=== PATIENT | female | born 1975 | race Caucasian/White ===

== ENCOUNTER 2016-08-20 13:03 | Emergency (ER) | payer BC ==
--- NOTE | ~2016-08-20 | CT17 ---
[facility] A Service of [facility] RADIOLOGY TEXT RESULTS PATIENT: IRIS SAUL LOCATION: SED : [birth year] UNIT #: [id number] AGE: [address]: Brian Miramontes MD SEX: F ORDER DR: [id number] [place] [address] [id number] E MR#: [id number] Acc #: [id number] NAME: IRIS SAUL. : 1975 SEX: F STUDY DATE/TIME: 08/20/2016 15:23 UNIT: SED ROOM: STUDY DESCRIPTION: CT Angio Head Attending Physician: Brian Miramontes M.D. Primary Care Physician: Vito Harris M.D. MEDICAL IMAGING REPORT This report is preliminary unless electronic signature is present. EXAM Head neck CTA, 08/20/2016 INDICATIONS Right side facial numbness for 4 hours with right shoulder pain all day. No trauma. TECHNIQUE Axial images were obtained through the head and neck following IV contrast administration. 3-D reformats were obtained. No comparison CTA. This CT exam was performed with one or more of the following radiation dose reduction techniques: automatic exposure control, adjustment of mA and/or kV according to patient size, and iterative reconstruction. FINDINGS Within the neck, there is no carotid or vertebral stenosis by NASCET criteria. No dissection is seen. There is no plaque disease. Vertebral arteries are codominant. The branching pattern from the arch is normal. Intracranially, there is no flow-limiting stenosis by NASCET criteria. No vessel cutoff is seen. There is no intracranial aneurysm. There is no vascular malformation. Major dural venous sinuses are patent. IMPRESSION Negative head and neck CT angiogram. There is 0% stenosis in the carotid or vertebral vasculature within the neck, and there is no dissection. Within the brain, there is 0% stenosis by NASCET criteria. No aneurysm or vascular malformation is seen. No vessel cutoff. [facility] A Service of [facility] RADIOLOGY TEXT RESULTS PATIENT: IRIS SAUL LOCATION: SED : [birth year] UNIT #: [id number] AGE: [address]: Brian Miramontes MD SEX: F ORDER DR: Dictated by... Buck Castrejon Jr., M.D. THIS IS AN ELECTRONICALLY VERIFIED REPORT Buck Castrejon Jr., M.D. at 08/21/2016 4:56 PM CHUCHO/marielos TD: 08/21/2016 00:26 JOB #: [id number] MEDICAL IMAGING REPORT Page 1 of 1
--- NOTE | ~2016-08-20 | CT71 ---
[facility] A Service [facility] RADIOLOGY TEXT RESULTS PATIENT: IRIS SAUL LOCATION: SED : [birth year] UNIT #: [id number] AGE: [address]: Brian Miramontes MD SEX: F ORDER DR: [id number] [place] [address] [id number] E MR#: [id number] Acc #: [id number] NAME: IRIS SAUL. : 1975 SEX: F STUDY DATE/TIME: 08/20/2016 15:19 UNIT: SED ROOM: STUDY DESCRIPTION: CT Head Wo Contrast Attending Physician: Brian Miramontes M.D. Primary Care Physician: Vito Harris M.D. MEDICAL IMAGING REPORT This report is preliminary unless electronic signature is present. EXAM Head CT, 08/20 INDICATIONS Right side facial numbness for about 4 hours. New onset right shoulder pain for 1 day. No trauma. FINDINGS Axial images were obtained from the base to the vertex without contrast. No comparison. This CT exam was performed with one or more of the following radiation dose reduction techniques: Automatic exposure control, adjustment of mA and/or kV according to patient size, and iterative reconstruction. Ventricular size and configuration are within normal limits. No acute infarct or hemorrhages seen. There are no masses. There are no skull fractures. IMPRESSION Negative noncontrast head CT. Dictated by... Buck Castrejon Jr., M.D. THIS IS AN ELECTRONICALLY VERIFIED REPORT Buck Castrejon Jr., M.D. at 08/20/2016 10:35 PM KAYKAYK/mylene TD: 08/20/2016 20:46 JOB #: [id number] [facility] A Service [facility] RADIOLOGY TEXT RESULTS PATIENT: IRIS SAUL LOCATION: SED : [birth year] UNIT #: [id number] AGE: [address]: Brian Miramontes MD SEX: F ORDER DR: MEDICAL IMAGING REPORT Page 1 of 1
--- NOTE | ~2016-08-20 | US140 ---
[facility] A Service of [facility] RADIOLOGY TEXT RESULTS PATIENT: IRIS SAUL LOCATION: SED : [birth year] UNIT #: [id number] AGE: [address]: Brian Miramontes MD SEX: F ORDER DR: [id number] [address] [address] [id number] E MR#: [id number] Acc #: [id number] NAME: IRIS SAUL : 1975 SEX: F STUDY DATE/TIME: 08/20/2016 15:23 UNIT: SED ROOM: STUDY DESCRIPTION: UE Veins Unilat or Ltd Stdy Attending Physician: Brian Miramontes M.D. Ordering Physician: Brian Miramontes M.D. Primary Care Physician: Vito Harris M.D. MEDICAL IMAGING REPORT This report is preliminary unless electronic signature is present. EXAM Ultrasound upper extremity veins unilateral HISTORY Right arm and shoulder pain for 1 week. Knot on the right forearm per patient. No previous history of DVT. Not taking blood thinners. FINDINGS Real-time ultrasonography right upper extremity venous structures performed. Lezama-scale, color Doppler, Doppler pulse wave interrogation utilized. The right internal jugular vein, subclavian vein, axillary vein, brachial veins are patent with normal compressibility where anatomically possible and normal Doppler color interrogation demonstrating [id number]-xd-[id number] flow. The right basilic and cephalic veins are patent with normal compressibility. The right radial and ulnar veins are patent with normal compressibility. IMPRESSION There is no evidence of right upper extremity deep or superficial venous thrombosis at time of this examination. Dictated by... Gareth Archuleta M.D. THIS IS AN ELECTRONICALLY VERIFIED REPORT Gareth Archuleta M.D. at 08/21/2016 5:16 PM CAITLYN/marielos TD: 08/20/2016 22:01 JOB #: [id number] [facility] A Service of [facility] RADIOLOGY TEXT RESULTS PATIENT: IRIS SAUL LOCATION: SED : [birth year] UNIT #: [id number] AGE: [address]: Brian Miramontes MD SEX: F ORDER DR: MEDICAL IMAGING REPORT Page 1 of 1
--- NOTE | ~2016-08-20 | CR63 ---
[facility] A Service of [facility] & [facility] RADIOLOGY TEXT RESULTS PATIENT: IRIS SAUL LOCATION: SED : [birth year] UNIT #: [id number] AGE: [address]: Brian Miramontes MD SEX: F ORDER DR: [id number] [place] [id number] E MR#: [id number] Acc #: [id number] NAME: IRIS SAUL. : 1975 SEX: F STUDY DATE/TIME: 08/20/2016 15:10 UNIT: SED ROOM: STUDY DESCRIPTION: CR Chest 2 View Attending Physician: Brian Miramontes M.D. Ordering Physician: Brian Miramontes M.D. Primary Care Physician: iVto Harris M.D. MEDICAL IMAGING REPORT This report is preliminary unless electronic signature is present. EXAM PA and lateral chest INDICATIONS Cough, right-sided facial numbness, right shoulder pain for 1 day. Comparison is made with 09/10/09. FINDINGS Lungs are well expanded. No acute infiltrate. Heart size normal. Visualized osseous structures are unremarkable. IMPRESSION No active disease. Dictated by... Sha Kessler M.D. THIS IS AN ELECTRONICALLY VERIFIED REPORT Sha Kessler M.D. at 08/21/2016 7:38 AM ARS/mylene TD: 08/20/2016 21:19 JOB #: [id number] MEDICAL IMAGING REPORT Page 1 of 1
--- NOTE | ~2016-08-20 | EKG ---
PATIENT: IRIS SAUL UNIT #: [id number] Ventricular Rate: 79 BPM Atrial Rate: 79 BPM P-R Interval: 160 ms QRS Duration: 78 ms Q-T Interval: 410 ms QTC Calculation(Bezet): 470 ms P Mobile: 38 degrees Calculated R Mobile: 42 degrees Calculated T Mobile: 39 degrees Diagnosis Line: Normal sinus rhythm Diagnosis Line: Normal ECG Diagnosis Line: Diagnosis Line: Confirmed by CORNELIUS ZEPEDA MD ([id number]) on Diagnosis Line: 08/29/2016 8:27:38 AM INTERPRETING MD: DUANE FRANCIS
--- NOTE | ~2016-08-20 | CT23 ---
[facility] A Service of [facility] RADIOLOGY TEXT RESULTS PATIENT: IIRS SAUL LOCATION: SED : [birth year] UNIT #: [id number] AGE: [address]: Brian Miramontes MD SEX: F ORDER DR: [id number] [place] [address] [id number] E MR#: [id number] Acc #: [id number] NAME: IRIS SAUL. : 1975 SEX: F STUDY DATE/TIME: 08/20/2016 15:23 UNIT: SED ROOM: STUDY DESCRIPTION: CT Angio Neck Attending Physician: Brian Miramontes M.D. Primary Care Physician: Vito Harris M.D. MEDICAL IMAGING REPORT This report is preliminary unless electronic signature is present. EXAM CTA neck, 08/20/2016 For results of this exam please see report of CTA head of the same date. Dictated by... Buck Castrejon Jr., M.D. THIS IS AN ELECTRONICALLY VERIFIED REPORT Buck Castrejon Jr., M.D. at 08/21/2016 4:56 PM CHUCHO/marielos TD: 08/21/2016 00:34 JOB #: [id number] MEDICAL IMAGING REPORT Page 1 of 1
[~2016-08-20 13:03] MED LIST: ALPRAZOLAM PO; CERTAGEN PO; CYMBALTA PO; DSS100 MG PO; FLEXERIL PO; LYRICA PO; MIRALAX17 G2 PO; MULTIVITAMIN1 UDCAP PO; ORTHO-CYCLEN1 TAB PO; PERCOCET 7.5-31 EACH PO; VICODIN PO; ZIAC; ZOLOFT PO
[2016-08-20 14:15] LABS: BASOPHIL# 0.1 X10e3 (0-0.3); BASOPHIL% 0.9 % (0-2.5); EOSINOPHIL# 0.2 X10e3 (0-0.7); EOSINOPHIL% 3.1 % (0.0-7.0); HEMATOCRIT 39.1 % (35.0-45.0); HEMOGLOBIN 13.3 gm/dL (12.0-16.0); LYMPHOCYTE# 1.6 X10e3 (1.0-3.5); LYMPHOCYTE% 26.6 % (17.0-45.0); MEAN CELL VOLUME 86.1 FL (83-96); MEAN CORPUSCULAR HEMOGLOBIN 29.2 PG (28-34); MEAN CORPUSCULAR HGB CONC 33.9 g/dL (30-36); MEAN PLATELET VOLUME 8.7 FL (6.5-11.5); MONOCYTE# 0.4 X10e3 (0-1.0); MONOCYTE% 7.3 % (3.0-12.0); NEUTROPHIL# 3.8 X10e3 (1.5-7.1); NEUTROPHIL% 62.1 % (40-75); PLATELET COUNT 254 X10e3 (140-420); PROTHROMBIN TIME (PATIENT) 11.1 SECONDS (9.5-12.4); RED BLOOD COUNT 4.55 X10e (3.90-5.30); RED CELL DISTRIBUTION WIDTH 13.6 % (11.0-15.5); WHITE BLOOD COUNT 6.1 X10e3 (4.0-10.5)
[2016-08-20 14:17] LABS: DIFF IND NO
[2016-08-20 14:24] LABS: ALBUMIN SERUM 3.7 g/dL (3.5-5.0); ALKALINE PHOSPHATASE 52 U/L (32-92); ALT (SGPT) 14 U/L (10-40); AST (SGOT) 14 U/L (10-42); BILIRUBIN,TOTAL 0.3 mg/dL (0.2-2.0); BLOOD UREA NITROGEN 15 mg/dL (9-23); BUN/CREATININE RATIO 21.42; CALCIUM SERUM 8.9 mg/dL (8.4-10.2); CARBON DIOXIDE 23 mmol/L (22-31); CHLORIDE 106 mmol/L (100-111); CREATININE SERUM 0.7 mg/dL (0.6-1.4); GLOM FILT RATE Estimated 108.4 mL/min (>60); GLUCOSE FASTING 129 mg/dL (70-110); POTASSIUM 4.1 mmol/L (3.5-5.1); PROTEIN TOTAL SERUM 6.8 g/dL (6.0-8.3); SODIUM 137 mmol/L (135-145)
[2016-08-20 14:25] LABS: PARTIAL THROMBOPLASTIN TIME 25.4 SECONDS (25.6-38.1)
[2016-08-20 14:28] LABS: BILIRUBIN, DIRECT <0.1 mg/dL (0.0-0.2); BILIRUBIN,INDIRECT 0.2 mg/dL (0.0-0.9)
[2016-08-20 14:32] LABS: POC - CKMB <1.0 ng/mL (0.0-7.9); POC - TROPONIN <0.05 ng/mL (<=0.05)
== END 2016-08-20 17:39 | disposition home or self-care (01) ==
LOC: SED 13:03
PROVIDERS: Emergency Medicine
DX: G51.0 Bell's palsy (principal); M79.601 Pain in right arm; I10 Essential (primary) hypertension; E11.9 Type 2 diabetes mellitus without complications; Z90.710 Acquired absence of both cervix and uterus; Z88.5 Allergy status to narcotic agent
CPT/HCPCS: 36415; 70450; 70496; 70498; 71020; 80048; 80076; 82553; 84484; 85025; 85610; 85730; 93005; 93971; 99284; Q9967